=== PATIENT | male | born 1945 | race Caucasian/White ===

== ENCOUNTER 2021-01-20 21:11 | Emergency (ER) | payer OTHER, MEDICARE ==
[2021-01-20 22:37] LABS: BASOPHIL 0.5 % (0-2); EOSINOPHIL 1.3 % (0-7); HCT 35.1 % (42.0-52.0); HGB 12.3 g/dl (13.2-18.0); LYMPHOCYTE 14.4 % (15-48); MCH 32.8 pg (25.0-31.0); MCV 93.6 fL (78.0-100.0); MONOCYTE 9.5 % (0-12); MPV 9.8 fL (6.0-9.5); NEUTROPHIL 73.8 % (41-80); NRBC 0; PLT 149 K/uL (150-400); RBC 3.75 M/uL (4.70-6.00); RDW 14.2 % (11.5-14.0); WBC 6.1 K/uL (4.0-10.5)
[2021-01-20 22:48] LABS: INR 4.68 (0.9-1.2); PROTHROMBIN TIME 42.9 SECONDS (11.8-13.4)
== END 2021-01-20 23:58 | disposition home or self-care (01) ==
LOC: FER 21:11
PROVIDERS: Emergency Medicine Emergency Medical Services
DX: S80.11XA Contusion of right lower leg, initial encounter (principal); X50.1XXA Overexertion from prolonged static or awkward postures, initial encounter; Y93.K1 Activity, walking an animal; Y92.410 Unspecified street and highway as the place of occurrence of the external cause
CPT/HCPCS: 36415; 73590; 85025; 85610; 85730